=== PATIENT | female | born 1995 | race African-American/Black ===

== ENCOUNTER 2019-06-05 16:00 | Emergency (ER) | payer OTHER ==
[~2019-06-05] VITALS: Ht 157.5 cm; Wt 49.9 kg
[2019-06-05 16:00] VITALS: BP 116/69
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
[2019-06-05] MEDS ORDERED: Hydrogen Peroxide 473ml Bottle TOPIC ONE ×2 (17:27→17:30)
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
[2019-06-05] MEDS ORDERED: IBU800 MG PO (17:37)
[2019-06-05] MEDS ORDERED: CEPHALEXIN500 MG ORAL (17:55)
--- NOTE | 2019-06-05 18:41 | NUR ---
ER DISCHARGE NOTE: Patient is cleared to be discharged per ERMD, pt is aox4, on room air, with stable vital signs. pt was given dc and prescription instructions, pt was able to verbalize understanding, pt id band removed. pt is able to ambulate with steady gait. pt took all belongings. Pt cast and site of injury CDI adn pt has sensation in fingers. Pt educated on 2 prescriptions.
[2019-06-05 18:43] VITALS: BP 114/67
== END 2019-06-05 18:43 | disposition home or self-care (01) ==
LOC: EDBD 16:00 → EMR 18:02
DX: S52.501A Unspecified fracture of the lower end of right radius, initial encounter for closed fracture (principal); S61.214A Laceration without foreign body of right ring finger without damage to nail, initial encounter; S61.216A Laceration without foreign body of right little finger without damage to nail, initial encounter
CPT/HCPCS: 12001; 29125; 73030; 73080; 73110; Z7502; 99284